=== PATIENT | male | born 1935 | race Hispanic/Latino ===

== ENCOUNTER 2018-06-09 15:56 | Emergency (ER) | payer OTHER ==
[~2018-06-09 15:56] MED LIST: ATROPINE SULFATE 0.1 MG/ML 10 ML SYG IVP ONE; CALCIUM CHLORIDE 100 MG/ML 10 ML SYG IVP ONE; EPINEPHRINE 0.1 MG/ML 10 ML SYG IVP ONE; ETOMIDATE 2 MG/ML 10 ML VIAL IVP ONE
[2018-06-09] MEDS ORDERED: FENTANYL CITRATE PF 50 MCG/1 ML 2ML VIAL ONE (16:39)
[2018-06-09] MEDS ORDERED: PROPOFOL 1000 MG/100 ML 0 ML IV ONE (16:44)
[2018-06-09] MEDS ORDERED: NOREPINEPHRINE BITARTRATE 1 MG/1 ML ML IV ONE (16:55)
[2018-06-09] MEDS ORDERED: SODIUM CHLORIDE 0.9% 250 ML IV ONE ×3 (16:55→18:16)
[2018-06-09 17:07] LABS: BASOPHILS % (AUTO) 0.2 % (0.0-5.0); EOSINOPHILS % (AUTO) 0.1 % (0.0-8.0); MEAN CORPUSCULAR HEMOGLOBIN 30.7 pg (27.0-33.0); MEAN CORPUSCULAR HGB CONC 33.9 g/dL (32.0-36.0); MEAN CORPUSCULAR VOLUME 90.6 fL (79-99); MONOCYTES % (AUTO) 6.4 % (3.0-13.0); NEUTROPHILS % (AUTO) 85.3 % (40.0-77.0); PLATELET COUNT (AUTO) 178 K/uL (130-400); RED BLOOD CELL COUNT(AUTO) 3.42 MIL/uL (4.50-6.20); RED CELL DISTRIBUTION WIDTH 14.3 % (11.0-15.5); WHITE BLOOD COUNT (AUTO) 8.7 K/uL (4.8-10.8)
[2018-06-09 17:27] LABS: CREATININE 1.7 mg/dL (0.5-1.5)
[2018-06-09] MEDS ORDERED: DOPAMINE 800MG/D5 250ML 250 ML IV ONE (17:37)
[2018-06-09 17:45] LABS: APPEARANCE,URINE CLOUDY (CLEAR); BILIRUBIN,URINE NEGATIVE (NEGATIVE); COLOR,URINE YELLOW (YELLOW); GLUCOSE, URINE (UA) NEGATIVE (NEGATIVE); KETONES,URINE NEGATIVE (NEGATIVE); LEUKOCYTE ESTERASE ,URINE NEGATIVE (NEGATIVE); NITRATE,URINE NEGATIVE (NEGATIVE); OCCULT BLOOD,URINE LARGE (NEGATIVE); PROTEIN,URINE >=300 (NEGATIVE); UROBILINOGEN,URINE 0.2 mg/dL (0.2-1.0)
[2018-06-09 17:51] LABS: ABG OXYGEN SATURATION 97.3 % (95.0-99.0); BASE EXCESS,VENOUS BLOOD GAS -13.3 (-2.0-3.0); HCO3,VENOUS BLOOD GAS 12.7 (21.0-28.0); PCO2,VENOUS BLOOD GAS 30 (35-48); PH,VENOUS BLOOD GAS 7.248 (7.350-7.450)
[2018-06-09 18:07] LABS: ALBUMIN 3.3 g/dL (3.5-5.0); BILIRUBIN,TOTAL 0.8 mg/dL (0.2-1.0); TOTAL PROTEIN, SERUM 7.4 g/dL (6.0-8.3)
[2018-06-09] MEDS ORDERED: EPINEPHRINE 1 MG/ML AMPULE ONE (18:11)
[2018-06-09 18:14] LABS: PARTIAL THROMBOPLASTIN TIME 61.4 SEC (26.3-35.5)
[2018-06-09] MEDS ORDERED: SODIUM CHLORIDE 0.9% 1000ML 2,000 ML IV ONE (18:16)
[2018-06-09 18:18] LABS: INR 1.41 (0.85-1.15); PROTHROMBIN TIME 14.7 SEC (9.6-11.6)
[2018-06-09 18:23] LABS: WBC,URINE 0-1 /HPF (0-1)
[2018-06-09 18:24] LABS: BACTERIA,URINE Moderate /HPF (None Seen); SQUAMOUS EPITHELIAL CELL,UR Rare /HPF (0-2); YEAST,URINE BUDDING Few /HPF (None Seen)
[2018-06-09] MEDS ORDERED: SODIUM BICARB 50MEQ 50ML VIAL ONE (18:26)
[2018-06-09 18:35] LABS: CREATININE 1.7 mg/dL (0.5-1.5); POTASSIUM 4.4 mmol/L (3.5-5.1)
[2018-06-09 18:59] LABS: BASOPHILS % (AUTO) 0.6 % (0.0-5.0); EOSINOPHILS % (AUTO) 3.4 % (0.0-8.0); LYMPHOCYTES % (AUTO) 21.4 % (21.0-51.0); MEAN CORPUSCULAR HEMOGLOBIN 29.2 pg (27.0-33.0); MEAN CORPUSCULAR HGB CONC 32.2 g/dL (32.0-36.0); MEAN CORPUSCULAR VOLUME 90.5 fL (79-99); MONOCYTES % (AUTO) 4.2 % (3.0-13.0); NEUTROPHILS % (AUTO) 70.4 % (40.0-77.0); NUCLEATED RED BLOOD CELLS 1.9 % (0.0-0.19); PLATELET COUNT (AUTO) 82 K/uL (130-400); RED BLOOD CELL COUNT(AUTO) 2.22 MIL/uL (4.50-6.20); RED CELL DISTRIBUTION WIDTH 15.1 % (11.0-15.5); WHITE BLOOD COUNT (AUTO) 5.2 K/uL (4.8-10.8)
[2018-06-09 19:05] LABS: HEMATOCRIT 20.1 % (42-54)
== END 2018-06-09 18:56 | disposition home or self-care (01) ==
LOC: EDH 15:56
DX: I71.9 Aortic aneurysm of unspecified site, without rupture (principal); I71.00 Dissection of unspecified site of aorta; I10 Essential (primary) hypertension; M54.5 Low back pain
CPT/HCPCS: 31500; 36415; 36600; 71045; 76705; 76775; 80048; 80053; 81001; 82330; 82435; 82550; 82803; 82947; 82948; 83605 ×2; 84132; 84295; 84484; 85025; 85610; 85730; 86140; 86850; 86900; 86901; 86922; 92950 ×2; 93005; 94002; 96360; 99291; 99292; J0171 ×2; J0461; J1265; J3010; J3490 ×4; J7030 ×4; P9016 ×2; J2704